=== PATIENT | female | born 1980 | race Caucasian/White ===

== ENCOUNTER 2021-05-26 09:50 | Emergency (ER) | payer OTHER ==
[~2021-05-26] VITALS: Ht 160 cm; Wt 63.8 kg
[2021-05-26] MEDS ORDERED: MULT-90 PO (10:02)
[2021-05-26] MEDS ORDERED: ADV250INH INH (10:02)
[2021-05-26] MEDS ORDERED: OMEP1CAP73 PO (10:02)
[2021-05-26] MEDS ORDERED: FLUORESCEIN OPHTH 1 MG STRIP XX ONE (10:15)
[2021-05-26] MEDS ORDERED: PROPARACAINE 0.5% OPHTH SOL 15ML XX ONE (10:15)
[2021-05-26] MEDS ORDERED: OCUF0.25 OP (11:35)
[2021-05-26] MEDS ORDERED: CIPR0.3S6 OP (12:00)
[2021-05-26 12:07] VITALS: BP 142/98
== END 2021-05-26 12:08 | disposition home or self-care (01) ==
LOC: M ED 09:50
DX: S05.01XA Injury of conjunctiva and corneal abrasion without foreign body, right eye, initial encounter (principal); S05.02XA Injury of conjunctiva and corneal abrasion without foreign body, left eye, initial encounter; X58.XXXA Exposure to other specified factors, initial encounter; Y92.89 Other specified places as the place of occurrence of the external cause; J45.909 Unspecified asthma, uncomplicated; K58.9 Irritable bowel syndrome, unspecified; Z79.899 Other long term (current) drug therapy; F17.210 Nicotine dependence, cigarettes, uncomplicated

== ENCOUNTER 2021-05-28 21:36 | Emergency (ER) | payer OTHER ==
[~2021-05-28] VITALS: Ht 160 cm; Wt 63.4 kg
[~2021-05-28 21:36] MED LIST: ADV250INH INH; CIPR0.3S6 OP; MULT-90 PO; OCUF0.25 OP; OMEP1CAP73 PO
[2021-05-28 21:37] VITALS: BP 125/83
== END 2021-05-28 22:30 | disposition left against medical advice (07) ==
LOC: M ED 21:36
DX: Z53.21 Procedure and treatment not carried out due to patient leaving prior to being seen by health care provider (principal)